=== PATIENT | male | born 1985 | race Two or more races ===

== ENCOUNTER → 2020-12-29 | Outpatient (CLI) | payer OTHER ==
--- NOTE | 2020-12-29 09:54 | RAD ---
1.3 views left knee 2. 2 views left wrist 12/29/2020 9:40 AM Indication: Left knee pain. Left wrist pain. Comparison: None Left knee: There is no acute fracture or dislocation. Articular surfaces are uninterupted and smooth. Soft tissues are unremarkable. Left wrist: There is irregularity and apparent small bone fragment at the dorsum of the triquetrum se en on lateral view suggestive of an age indeterminate triquetral fracture. Correlate with physical ex am findings. Impression: 1. Age indeterminate left triquetral fracture 2. No radiographic evidence of acute osseous of normality involving the left knee, Electronically signed by: Adithya Hernandez MD (12/29/2020 9:51 AM) [id number]
== END ==
LOC: RAD 09:28
PROVIDERS: ATTEND Family Medicine
DX: S62.112A Displaced fracture of triquetrum [cuneiform] bone, left wrist, initial encounter for closed fracture (principal); X58.XXXA Exposure to other specified factors, initial encounter; Y93.89 Activity, other specified; Y92.89 Other specified places as the place of occurrence of the external cause; Y99.8 Other external cause status
CPT/HCPCS: 73100; 73562